=== PATIENT | female | born 1940 | race Caucasian/White ===

== ENCOUNTER → 2016-04-11 | Outpatient (CLI) | payer MEDICARE ==
--- NOTE | 2016-04-12 08:23 | MM ---
Reason for exam: screening (asymptomatic). Last mammogram was performed 1 year ago. History: Patient is postmenopausal. Benign cyst aspiration of the left breast, 1994. Physical Findings: A clinical breast exam by your physician is recommended on an annual basis and results should be correlated with mammographic findings. MG 3D Screening Mammo W/Cad Bilateral CC and MLO view(s) were taken. Prior study comparison: April 01, 2015, bilateral MG 3d screening mammo w/cad. March 26, 2014, bilateral MG screening mammo w CAD. The breast tissue is heterogeneously dense. This may lower the sensitivity of mammography. Finding: There are typically benign vascular, round calcifications in both breasts. There is no discrete abnormality. ASSESSMENT: Benign, BI-RAD 2 RECOMMENDATION: Routine screening mammogram of both breasts in 1 year.
== END | disposition home or self-care (01) ==
LOC: RADMAMWWP 10:41
PROVIDERS: ATTEND Internal Medicine
DX: Z12.31 Encounter for screening mammogram for malignant neoplasm of breast (principal)
CPT/HCPCS: 77063; G0202

== ENCOUNTER → 2017-05-12 | Outpatient (CLI) | payer MEDICARE ==
--- NOTE | 2017-05-15 10:37 | MM ---
Reason for exam: screening (asymptomatic). Last mammogram was performed 1 year and 1 month ago. History: Patient is postmenopausal. Benign cyst aspiration of the left breast, 1994. Physical Findings: A clinical breast exam by your physician is recommended on an annual basis and results should be correlated with mammographic findings. MG 3D Screening Mammo W/Cad Bilateral CC and MLO view(s) were taken. Prior study comparison: April 11, 2016, bilateral MG 3d screening mammo w/cad. April 01, 2015, bilateral MG 3d screening mammo w/cad. The breast tissue is heterogeneously dense. This may lower the sensitivity of mammography. No suspicious abnormality. No significant changes when compared with prior studies. ASSESSMENT: Negative, BI-RAD 1 RECOMMENDATION: Routine screening mammogram of both breasts in 1 year.
== END | disposition home or self-care (01) ==
LOC: RADMAMWWP 10:42
PROVIDERS: ATTEND Internal Medicine
DX: Z12.31 Encounter for screening mammogram for malignant neoplasm of breast (principal)
CPT/HCPCS: 77063; 77067

== ENCOUNTER → 2017-06-26 | Outpatient (CLI) | payer MEDICARE ==
--- NOTE | 2017-06-26 15:42 | US ---
EXAMINATION TYPE: US carotid duplex BILAT DATE OF EXAM: 06/26/2017 COMPARISON: NONE CLINICAL HISTORY: I65.23Occlusion and stenosis,. Stenosis EXAM MEASUREMENTS: RIGHT: Peak Systolic Velocity (PSV) cm/sec ----- Right CCA: 64.2 ----- Right ICA: 58.4 ----- Right ECA: 62.8 ICA/CCA ratio: 0.9 RIGHT: End Diastole cm/sec ----- Right CCA: 17.1 ----- Right ICA: 23.6 ----- Right ECA: 7.0 LEFT: Peak Systolic Velocity (PSV) cm/sec ----- Left CCA: 65.5 ----- Left ICA: 72.8 ----- Left ECA: 69.3 ICA/CCA ratio: 1.1 LEFT: End Diastole cm/sec ----- Left CCA: 22.6 ----- Left ICA: 30.0 ----- Left ECA: 8.6 VERTEBRALS (direction of flow): Right Vertebral: Antegrade Left Vertebral: Antegrade Rhythm: Arrhythmia No elevated velocities, no significant stenosis. IMPRESSION: 1. No sonographic evidence of hemodynamically significant stenosis within either arterial system. 2. Incidentally noted cardiac arrhythmia. Correlate with EKG.
--- NOTE | 2017-06-26 17:48 | ECHOF ---
Referral Reason:I65.23Occlusion and stenosis, MEASUREMENTS -------- HEIGHT: 160.0 cm WEIGHT: 61.2 kg BP: 133/83 RVIDd: 3.1 cm (< 3.3) IVSd: 1.0 cm (0.6 - 1.1) LVIDd: 4.3 cm (3.9 - 5.3) LVPWd: 1.0 cm (0.6 - 1.1) IVSs: 1.4 cm LVIDs: 2.6 cm LVPWs: 1.4 cm LAESV Index (A-L): 25.22 ml/m Ao Diam: 2.9 cm (2.0 - 3.7) AV Cusp: 1.9 cm (1.5 - 2.6) LA Diam: 3.4 cm (2.7 - 3.8) MV E Kade: 0.63 m/s MV DecT: 183 ms MV A Kade: 1.12 m/s MV E/A Ratio: 0.56 RAP: 5.00 mmHg RVSP: 30.16 mmHg FINDINGS -------- Atrial fibrillation. This was a technically adequate study. The left ventricular size is normal. Left ventricular wall thickness is normal. Overall left vent ricular systolic function is normal with, an EF between 55 - 60 %. The right ventricle is normal in size and function. Normal LA size by volume 22+/-6 ml/m2. The right atrium is normal in size. Aortic valve is trileaflet and is mildly thickened. There is no evidence of aortic regurgitation. There is no evidence of aortic stenosis. The mitral valve leaflets are mildly thickened. There is trace to mild mitral regurgitation. Trace tricuspid regurgitation present. Right ventricular systolic pressure is normal at < 35 mmHg. There is no evidence of pulmonary hypertension. Trace/mild (physiologic) pulmonic regurgitation. The aortic root size is normal. Normal inferior vena cava with normal inspiratory collapse consistent with estimated right atrial pre ssure of 5 mmHg. The pericardium is normal. There is no pericardial effusion. CONCLUSIONS -------- 1. Atrial fibrillation. 2. This was a technically adequate study. 3. The left ventricular size is normal. 4. Left ventricular wall thickness is normal. 5. Overall left ventricular systolic function is normal with, an EF between 55 - 60 %. 6. Normal LA size by volume 22+/-6 ml/m2. 7. Aortic valve is trileaflet and is mildly thickened. 8. The mitral valve leaflets are mildly thickened. 9. There is trace to mild mitral regurgitation. 10. Trace tricuspid regurgitation present. 11. Right ventricular systolic pressure is normal at < 35 mmHg. 12. There is no evidence of pulmonary hypertension. 13. Trace/mild (physiologic) pulmonic regurgitation. 14. The aortic root size is normal. 15. There is no pericardial effusion. COW BUYER: Francisco J Lind RDCS
== END | disposition home or self-care (01) ==
LOC: RADECHMAIN 14:41
PROVIDERS: ATTEND Internal Medicine
DX: I65.23 Occlusion and stenosis of bilateral carotid arteries (principal); I48.91 Unspecified atrial fibrillation; I08.0 Rheumatic disorders of both mitral and aortic valves
CPT/HCPCS: 93306; 93880

== ENCOUNTER → 2017-09-11 | Day surgery (SDC) | payer MEDICARE ==
[2017-08-31 16:02] VITALS: BMI 24.7
[~2017-09-11] MED LIST: ALPRAZolam 0.25 MG TAB PO PRN; ALPRAZolam 0.5 MG TAB PO PRN; ASPIRIN 325 MG TAB PO STA; ATORVASTATIN 80 MG TAB PO STA; HEPARIN SODIUM 1,000 UN/ML (10ML VL) IV ONE; HEPARIN SODIUM 1,000 UN/ML (10ML VL) ONE; IOPAMIDOL-370 125ML BTL INJ ONE; IV FLUID CONTINUATION 950 ML IV ONE; LIDOCAINE 1% INJ 10MG/ML (20 ML MDV) ONE; LIDOCAINE 1% INJ 10MG/ML (20 ML MDV) SQ ONE; LISINOPRIL-HCTZ 20-12.5 MG 1 EACH TAB PO SCH; LISINOPRIL-HCTZ 20-12.5 MG 1 EACH TAB PO STA; METOPROLOL TARTRATE 25 MG TAB PO SCH; METOPROLOL TARTRATE 25 MG TAB PO STA; NITROGLYCERIN SL TABS 0.4 MG TAB SUBLINGUAL PRN; NON-FORMULARY DRUG (Simvastatin 40 MG) PO SCH; RX INFO: IV CONTRAST WAS GIVEN 1 EACH MISC MISCELLANE PRN; SODIUM CHLORIDE 0.9% 1,000 ML IV SCH; SODIUM CHLORIDE 0.9% 1,000 ML in EMPTY BAG 1 BAG IV ONE; VERAPAMIL 2.5 MG/ML 2 ML AMP ONE; VERAPAMIL SYRINGE (5 MG/10 ML) INTRAARTER ONE; diphenhydrAMINE 50 MG/ML 1 ML VIAL IVP ONE; diphenhydrAMINE 50 MG/ML 1 ML VIAL ONE; fentaNYL (PF) 50 MCG/ML 2 ML AMP IV ONE; fentaNYL (PF) 50 MCG/ML 2 ML AMP ONE
[2017-09-11 07:10] VITALS: RESP 16; TEMP 98.3
--- NOTE | 2017-09-11 08:21 | CC ---
CARDIAC CATHETERIZATION REPORT Mrs. Shaw is a 77-year-old female with history of hypertension, hyperlipidemia, paroxysmal atrial fibrillation, who recently underwent a myocardial perfusion imaging that revealed apical reversible defect. In view of that, recommendation was made regarding cardiac catheterization. The procedure as well as the risks and the complications were discussed with the patient who is in full understanding and agreement. PROCEDURE: Patient was brought to the warehouse laborer in a fasting semi-sedated state after receiving fentanyl and Benadryl and achieving moderate conscious sedated state. Using Xylocaine anesthesia in the Seldinger technique, a 6-Nauruan sheath was introduced in the right radial artery. Selective right and left coronary angiography performed using 5-Nauruan 3.5 bend right and left Pankaj catheter. Multiple views of the coronary artery including hemiaxial views were obtained. Following that, a 5-Nauruan tight pigtail catheter was introduced in the left ventricle and a 30- degree CAMERON view of the left ventricle was obtained. Following that, catheter and sheaths were removed. Hemostasis was obtained with deployment of a TR band. There was no immediate complication. Patient is returned to her room in stable condition. Of note, the patient received 3500 units of intravenous heparin as well as intra-arterial verapamil. FINDINGS: LEFT MAIN: This is a short size vessel bifurcating into left circumflex, left anterior descending artery. Left main coronary artery has no evidence of high-grade stenosis. LEFT ANTERIOR DESCENDING ARTERY: This is a large-sized vessel tapers down distal third, giving rise to one diagonal branch. The left anterior descending artery as well as branches have no evidence of obstructive coronary artery disease. LEFT CIRCUMFLEX: This is a nondominant vessel, large in caliber, giving rise to 2 obtuse marginal branches. The second one is large in caliber. The left circumflex as well as branches have no evidence of obstructive coronary artery disease. RIGHT CORONARY ARTERY: This is a large dominant vessel bifurcating in PDA and posterolateral segment branches. The right coronary artery PDA reaches toward the inferior apical wall. The right coronary artery and its branches have no evidence of obstructive coronary artery disease. LEFT VENTRICULOGRAM: Left ventriculogram is performed in 30-degree CAMERON view and revealed normal left ventricular size and systolic function. There was arrhythmia induced mitral regurgitation. HEMODYNAMICS: There was no gradient across the aortic valve. The left ventricular end- diastolic pressure was 12 to 14 mmHg. CONCLUSION: 1. Normal coronary arteries. 2. Normal left ventricular size and systolic function. RECOMMENDATION: In view of finding anatomy, I recommend to continue medical therapy with aggressive coronary risk modifications that have been initiated. Those findings and recommendations were discussed with the patient and her family and they are in full understanding and agreement. MMODL / IJN: [id number] /
--- NOTE | 2017-09-11 08:24 | LTR ---
September 11, 2017 Re: Caty Shaw Dear Dr. Spivey: I had the opportunity to perform cardiac catheterization on Mrs. Shaw at [facility] on the 11 of September and a full copy of the procedure note will be forwarded to you. In brief, she was found to have no evidence of high-grade stenosis with a normal left ventricular size and systolic function. Based on those findings, I recommend to continue medical therapy with aggressive coronary risk modification that has been initiated. Thank you again for allowing me the opportunity to participate in her care. Please feel free to call for any questions. Sincerely yours, MD MATT Noel / SOUMYAN: [id number] /
[2017-09-11 12:46] VITALS: BP 106/62; PULSE 62
== END | disposition home or self-care (01) ==
LOC: CATHCVL 06:35
PROVIDERS: ATTEND Internal Medicine Interventional Cardiology
DX: R94.39 Abnormal result of other cardiovascular function study (principal); I48.0 Paroxysmal atrial fibrillation; I10 Essential (primary) hypertension; E78.2 Mixed hyperlipidemia; G47.33 Obstructive sleep apnea (adult) (pediatric); Z79.01 Long term (current) use of anticoagulants; Z79.899 Other long term (current) drug therapy; Z88.2 Allergy status to sulfonamides
CPT/HCPCS: 93458; C1894; C1769; J1200; J2001; J3010; J1644; Q9967

== ENCOUNTER → 2017-09-19 | Outpatient (CLI) | payer MEDICARE ==
--- NOTE | 2017-09-19 20:17 | CONS ---
CONSULTATION This 77-year-old female patient was referred to me for evaluation and treatment of obstructive sleep apnea. She was noted to snore. No witnessed apneas. She reports her sleep quality to be good and she averages around 8-9 hours of sleep per night. She denies waking up for issues like nocturia or choking or gasping for air. No restlessness in lower extremities. No grinding of the teeth. No anxiety or panic attacks. She has history of chronic atrial fibrillation, currently in sinus rhythm on treatment with the combination of flecainide and Eliquis. No coronary artery disease. No heart attack. No congestive heart failure. No history of CVA. Her weight has been stable for many years. She sleeps on her side. She does not take any naps during the day. She has no vivid dreams. She drinks no alcoholic beverages and she drinks 1 cup of coffee in the morning. No recent weight gain. She sleeps in a room with a partner. She does not have any sleep paralysis, hallucinations or cataplexy at this point in time. PAST MEDICAL HISTORY: Paroxysmal atrial fibrillation, currently in sinus, hyperlipidemia and hypertension. PAST SURGICAL HISTORY: Includes cardiac catheterization. DRUG ALLERGIES: To SULFA. OUTPATIENT MEDICATION: Includes: 1. Zocor 40 daily. 2. Lisinopril/hydrochlorothiazide 20/12.5, 1 tablet a day. 3. Metoprolol 25 mg twice daily. 4. Eliquis 5 mg p.o. twice a day and. 5. Flecainide 50 mg twice a day. SOCIAL HISTORY: Nonsmoker. No history of alcohol. No history of IV drugs. REVIEW OF SYSTEMS: A 12-point review of system was done. Positive findings are mentioned above in history of present illness. BP is 127/58, pulse 66, respirations 16, temperature 97.9, saturation 95% on room air. Weight is 144, height is 64, BMI 27.7. Vancouver Score is at 1. GENERAL APPEARANCE: Calm, comfortable. Head is atraumatic, normocephalic. Neck is short, supple. Crowding of posterior pharynx is present. Mallampati class III-IV. LUNGS: Clear to auscultation. HEART: Sounds are regular rate and rhythm. Normal S1, S2. No S3, S4. No murmurs. ABDOMEN: Soft, nontender. No organomegaly. EXTREMITIES: No edema and there is no cyanosis or clubbing at this point. IMPRESSION: 1. Snoring with low suspicion for obstructive sleep apnea in general. 2. Paroxysmal atrial fibrillation, currently in sinus. 3. Hyperlipidemia. 4. Hypertension. PLAN: 1. Home sleep study for apnea screening. 2. Will make further recommendations based on results. Overall, sleep hygiene measures are appropriate. She is well-treated for cardiovascular disease. Will continue to follow and make further recommendations should there be any positivity in her home sleep study testing. MMODL / IJN: [id number] /
== END | disposition home or self-care (01) ==
LOC: SLEEP 14:58
PROVIDERS: ATTEND Internal Medicine Critical Care Medicine
DX: R06.83 Snoring (principal); I48.0 Paroxysmal atrial fibrillation; E78.5 Hyperlipidemia, unspecified; I10 Essential (primary) hypertension; Z95.5 Presence of coronary angioplasty implant and graft; Z88.2 Allergy status to sulfonamides; Z79.02 Long term (current) use of antithrombotics/antiplatelets; Z79.899 Other long term (current) drug therapy
CPT/HCPCS: 99211

== ENCOUNTER → 2018-06-14 | Outpatient (CLI) | payer MEDICARE ==
--- NOTE | 2018-06-14 10:42 | BD ---
EXAMINATION TYPE: Axial Bone Density DATE OF EXAM: 06/14/2018 COMPARISON: 03.26.2014 CLINICAL HISTORY: 78 YR OLD FEMALE....ICD-10 CODE: M81.0 AGE RELATED OSTEOPOROSIS Height: 63.2 Weight: 144 FRAX RISK QUESTIONS: NOTHING TO NOTE HERE RISK FACTORS HISTORY OF: Active: YES Postmenopausal woman: YES AT AGE 54 Lost more than 2 inches in height since high school: YES MEDICATIONS: Additional Medications: CALCIUM AND VIT D, BP MEDS, STATIN FOR CHOLESTEROL Additional History: HYPERTENSION, CHOLESTEROL EXAM MEASUREMENTS: Bone mineral densitometry was performed using the ParQnow System. Bone mineral density as measured about the Lumbar spine is: ----- L1-L4(G/cm2): 1.139 T Score Values are as follows: ----- L1: -1.4 ----- L2: -1.2 ----- L3: 0.5 ----- L4: 0.4 ----- L1-L4: -0.3 Bone mineral density has: Increased 6.1% since study of: 03.26.2014 Bone mineral density about the R hip (g/cm2): 1.003 Bone mineral density about the L hip (g/cm2): 1.032 T Score values are as follows: -----R Neck: -1.1 -----L Neck: -0.8 -----R Total: 0.0 -----L Total: 0.2 Bone mineral density has: Increased 2.0% since study of: 03.26.2014 FRAX%s: THERE IS A 11.7% CHANCE FOR A MAJOR OSTEOPOROTIC FX AND A 2.3% FOR HIP....PROBABILITY OF FX IN 10 YRS TIME IMPRESSION: Normal (Values between +1 and -1 indicate normal bone mass). Consider repeating this study in 5 year s or sooner if there is some new clinical indication. NOTE: T-SCORE=SD OF THE YOUNG ADULT MEAN.
--- NOTE | 2018-06-15 11:44 | MM ---
Reason for exam: screening (asymptomatic). Last mammogram was performed 1 year and 1 month ago. History: Patient is postmenopausal. Benign cyst aspiration of the left breast, 1994. Physical Findings: A clinical breast exam by your physician is recommended on an annual basis and results should be correlated with mammographic findings. MG 3D Screening Mammo W/Cad Bilateral CC and MLO view(s) were taken. Prior study comparison: May 12, 2017, bilateral MG 3d screening mammo w/cad. April 11, 2016, bilateral MG 3d screening mammo w/cad. The breast tissue is heterogeneously dense. This may lower the sensitivity of mammography. Benign appearing bilateral calcifications. No suspicious abnormality. ASSESSMENT: Benign, BI-RAD 2 RECOMMENDATION: Routine screening mammogram of both breasts in 1 year.
== END ==
LOC: RADMAMWWP 09:48
PROVIDERS: ATTEND Internal Medicine
DX: Z12.31 Encounter for screening mammogram for malignant neoplasm of breast (principal); M81.0 Age-related osteoporosis without current pathological fracture
CPT/HCPCS: 77063; 77067; 77080

== ENCOUNTER → 2019-02-19 | Outpatient (CLI) | payer MEDICARE ==
--- NOTE | 2019-02-19 18:01 | PN ---
PROGRESS NOTE PROGRESS NOTE FOR SLEEP APNEA: This is a 79-year-old female patient coming in for an annual check regarding obstructive sleep apnea. The patient has severe disease with an AHI of 39, and currently she is utilizing a CPAP pressure of 7 cm of water. She is still doing very well. She has lost around 5 pounds since her last evaluation. She is using a DreamWear small-sized [id number] mask. Based on the compliance data, the patient has been averaging around 6-1/2 hours of CPAP use per night, and her CPAP use for more than 4 hours is 26/30. Leak is 0 L/minute. AHI is down to 0.1. Treatment is successful, and the patient has no major hypersomnia or sleepiness during the day. No other new-onset acute medical problems or comorbidities. She has atrial fibrillation. Currently her rhythm is sinus. No angina. No palpitations. No shortness of breath. No congestion or heart failure. No history of any CVA. REVIEW OF SYSTEMS: Fourteen-point review of systems was done. Positive findings were all mentioned above in the history of present illness. Patient overall is doing well. Very compliant with CPAP therapy. No headache. No altered mentation. No weight gain. No other major medical problems or comorbidities. PHYSICAL EXAMINATION: BP is 112/58, pulse 70, respirations 16, temperature 97.4, saturation 96% on room air. Weight is 140. Height is 5 feet 4 inches. Berlin score is 2. BMI is 24. GENERAL APPEARANCE: Calm, comfortable. HEAD: Atraumatic, normocephalic. NECK: Supple. No JVD. No goiter or neck masses. Mallampati class IV. LUNGS: Clear to auscultation. HEART: Heart sounds are regular rate and rhythm. Normal S1, S2. No S3, S4. No murmurs. ABDOMEN: Soft, nontender. No organomegaly. EXTREMITIES: No edema. No cyanosis or clubbing. NEUROLOGIC: Alert and oriented x3. No focal neurological deficits. PSYCHIATRIC: Negative for anxiety or depression. IMPRESSION: 1. Symptomatic obstructive sleep apnea, severe, with an apnea/hypopnea index of 39, undergoing successful CPAP therapy. 2. Paroxysmal atrial fibrillation. Rhythm remains sinus. 3. Hypertension. 4. Hyperlipidemia. PLAN: 1. Continue CPAP at the same level of pressure, which is 7 cm of water. 2. Adequate weight loss. 3. Use the DreamWear [id number] small-sized mask. I also introduced an AirFit N30i small-sized mask, which she liked. 4. Overall condition is stable. Treatment is successful. See me back in a year's time in followup, earlier if needed. MMMAYL / IJN: [id number] /
== END | disposition home or self-care (01) ==
LOC: SLEEP 14:07
PROVIDERS: ATTEND Internal Medicine Critical Care Medicine
DX: G47.33 Obstructive sleep apnea (adult) (pediatric) (principal); I10 Essential (primary) hypertension; E78.5 Hyperlipidemia, unspecified; I48.0 Paroxysmal atrial fibrillation; Z99.89 Dependence on other enabling machines and devices

== ENCOUNTER → 2019-11-20 | Outpatient (CLI) | payer MEDICARE ==
--- NOTE | 2019-11-22 09:49 | MM ---
Reason for exam: screening (asymptomatic). Last mammogram was performed 1 year and 5 months ago. History: Patient is postmenopausal. Benign cyst aspiration of the left breast, 1994. Physical Findings: A clinical breast exam by your physician is recommended on an annual basis and results should be correlated with mammographic findings. MG 3D Screening Mammo W/Cad Bilateral CC and MLO view(s) were taken. Prior study comparison: June 14, 2018, bilateral MG 3d screening mammo w/cad. May 12, 2017, bilateral MG 3d screening mammo w/cad. The breast tissue is heterogeneously dense. This may lower the sensitivity of mammography. No significant changes when compared with prior studies. ASSESSMENT: Benign, BI-RAD 2 RECOMMENDATION: Routine screening mammogram of both breasts in 1 year.
== END | disposition home or self-care (01) ==
LOC: RADMAMWWP 12:52
PROVIDERS: ATTEND Internal Medicine
DX: Z12.31 Encounter for screening mammogram for malignant neoplasm of breast (principal)
CPT/HCPCS: 77063; 77067

== ENCOUNTER → 2019-12-24 | Outpatient (CLI) | payer MEDICARE ==
--- NOTE | 2019-12-24 15:04 | P.PN ---
Subjective Progress Note Date: 12/24/19 78-year-old female patient coming in for an annual checkup regarding up 6 obstructive sleep apnea. The patient is very well-known to me. She is known to have severe FRIDA with an AHI of 39 and continues to be treated successfully with CPAP therapy and she still has a pressure of 9 cm of water. On today's evaluation, the patient has no specific complaints. I checked the compliance data from her CPAP machine and the numbers are still looking great. The patient is wearing her CPAP every night without any major difficulties. A CPAP compliancy is 100%. She is averaging more than 4 hours 70% of the time. Her average CPAP use around 4.2 hours per night and the leak is in the order of 1 L per minute and it AHI is down to 0.1 while on treatment. The patient is using and airfit N30 i small size mask. I noted that her blood pressure is elevated and I asked her to contact her primary care physician that regard. The blood pressure as recorded byour machine in both arms is in order 170/76 and as such systolic blood pressure is elevated. No morning headaches. No hypersomnia and sleepiness. No restlessness in lower extremities. No nighttime chest pain or shortness of breath. No aerophagia. No gastric distention. She is waking up refreshed and alert during the day and she has no specific complaints. 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 Objective - Exam bP is 173/76, pulse is 58, respirations 16, temperature is 90.8, height is 53, weight is 136, BMI 23.7. Her Felton score is 1. The patient appeared well nourished and normally developed. Vital signs as documented. Head exam is unremarkable. No scleral icterus or corneal arcus noted. Neck is without jugular venous distension, thyromegaly, or carotid bruits. Carotid upstrokes are brisk bilaterally. Lungs are clear to auscultation and percussion. Cardiac exam reveals the PMI to be normally sized and situated. Rhythm is regular. First and second heart sounds normal. No murmurs, rubs or gallops. Abdominal exam reveals normal bowel sounds, no masses, no organomegaly and no aortic enlargement. Extremities are nonedematous and both femoral and pedal pulses are normal.Examination of the skin revealed no evidence of significant rashes, suspicious appearing nevi or other concerning lesions.Neurologically, the patient is awake and alert and the patient does not have any focal neurological deficit. Cranial nerves are essentially intact. Assessment and Plan Plan: 1 obstructive sleep apnea, severe at baseline with an AHI of 39. The patient continues to be successfully treated with CPAP at a pressure of 7 cm of water. Her treatment is successful. She is functional. Compliance data shows excellent use. She is alert and awake during the day. Her Felton score is down to 1. She has no complaints. 2 hypertension with elevated blood pressure. She is asymptomatic and her BP is elevated and the patient needs to follow up with her primary care physician. 3 paroxysmal atrial fibrillation and the cardiac rhythm remains sinus. 4 hyperlipidemia Plan Continue CPAP therapy same level of pressure I offered the patient AIrfit N30 i Small size nosepiece Her compliance data was checked Clinical response is great Implement good sleep hygiene measures Comorbidities are all inactive in stable see back in a years time, earlier if needed.
== END | disposition home or self-care (01) ==
LOC: SLEEP 14:09
PROVIDERS: ATTEND Internal Medicine Critical Care Medicine
DX: G47.33 Obstructive sleep apnea (adult) (pediatric) (principal); I10 Essential (primary) hypertension; I48.0 Paroxysmal atrial fibrillation; Z99.89 Dependence on other enabling machines and devices; E78.5 Hyperlipidemia, unspecified

== ENCOUNTER → 2020-06-18 | Outpatient (CLI) | payer MEDICARE ==
--- NOTE | 2020-06-19 15:16 | US ---
EXAMINATION TYPE: US abd limited kidneys/bladder DATE OF EXAM: 06/18/2020 COMPARISON: None CLINICAL HISTORY: 80-year-old female N18.1 chronic kidney disease. TECHNIQUE: Multiple sonographic images of the kidneys and bladder are obtained. FINDINGS: EXAM MEASUREMENTS: Liver Length: 12.1 cm Gallbladder Wall: 0.2 cm CBD: 0.3 cm Right Kidney: 8.9 x 5.2x 3.7 cm Left Kidney: 9.1 x 4.8 x 4.2 cm Pancreas: No gross abnormality.. Liver: Limited detailed assessment due to patient body habitus. Small let lobe peripheral cyst seen = 0.9 x 0.7 x 0.9cm Gallbladder: wnl CBD: wnl Right Kidney: No hydronephrosis. Slightly small in size. Left Kidney: No hydronephrosis. Slightly small in size. Bladder: wnl Bilateral Jets Seen very small right jet seen compared to normal left jet seen Post Void Volume: Patient is unable to void even after attempting to void. Bladder volume of 100 mL . IMPRESSION: 1. Slightly small size of the kidneys could reflect underlying chronic medical renal disease. No hydr onephrosis. 2. Bladder volume of 100 mL. Patient is unable to void further. Correlate to exclude urinary retentio n.
== END | disposition home or self-care (01) ==
LOC: RADUSWWP 16:06
PROVIDERS: ATTEND Internal Medicine
DX: N18.1 Chronic kidney disease, stage 1 (principal)
CPT/HCPCS: 76705; 76770

== ENCOUNTER → 2020-12-29 | Outpatient (CLI) | payer MEDICARE ==
--- NOTE | 2020-12-29 19:35 | PN ---
PROGRESS NOTE This is an 80-year-old female patient who coming in for an annual check regarding obstructive sleep apnea. The patient is well known to me and she has severe FRIDA with an AHI of 39. Currently she is on CPAP pressure of 9 cm of water. No major difficulties with her CPAP treatment. She is using an AirFit N20 small-sized nose mask. No major hypersomnia or sleepiness during the day and she seems to be well treated. She has an average of 4.3 hours of CPAP use per night. Her usage of the machine for more than 4 hours is approximately 70%. She has used her machine every night. Her leak is on the order of 6 L/minute. Her AHI is down to 0.4. No weight gain. No other new-onset comorbidities. Her blood pressure seems to be a little bit elevated, yet she tells me that in general her blood pressure has been under good control. No tiredness and sleepiness during the day. Medication remains unchanged for now. MEDICATIONS: Medication list includes: 1. Eliquis 5 mg p.o. twice a day. 2. Flecainide 100 mg p.o. daily. 3. Lisinopril/hydrochlorothiazide 20/25 one tablet a day. 4. Metoprolol 25 mg p.o. twice a day. 5. Zocor 40 mg p.o. daily. REVIEW OF SYSTEMS: Fourteen-point review of systems was done. The positive findings are all mentioned above in history of present illness. PHYSICAL EXAMINATION: BP is 175/96, pulse 64, respirations 12, temperature 97.3, saturation 96% on room air. BMI 25.4. [place] score is 1. GENERAL APPEARANCE: Calm and comfortable. No acute distress. HEAD: Atraumatic, normocephalic. NECK: Supple. No JVD. No goiter or neck masses. LUNGS: Clear to auscultation. Heart sounds are regular rate and rhythm. Normal S1, S2. No S3, S4. No murmurs. ABDOMEN: Soft, nontender. No organomegaly. EXTREMITIES: No edema. No cyanosis or clubbing. NEUROLOGIC: Awake and alert. There is no focal neurological deficit. IMPRESSION: 1. Obstructive sleep apnea, severe. AHI of 39. Currently on CPAP pressure of 7 cm of water. Treatment remains successful. 2. Hypertension. 3. Paroxysmal atrial fibrillation. Rate is controlled. The patient is currently in normal sinus rhythm on Eliquis and metoprolol. 4. Hyperlipidemia. PLAN: 1. CPAP machine was checked and the machine was functional. 2. Compliance data was checked and the numbers are looking great. 3. Continue the AirFit N20 small-sized nose mask. 4. Keep the pressure setting at 7 cm of water. 5. Treatment is successful. Encourage increasing the number of hours of sleep with the CPAP. 6. Cardiovascular status is stable. The patient will see me back in a year's time in followup. Refills were given. MMODL / IJN: [id number] /
== END ==
LOC: SLEEP 14:47
PROVIDERS: ATTEND Internal Medicine Critical Care Medicine
DX: G47.33 Obstructive sleep apnea (adult) (pediatric) (principal); I10 Essential (primary) hypertension; E78.5 Hyperlipidemia, unspecified; I48.0 Paroxysmal atrial fibrillation; Z99.89 Dependence on other enabling machines and devices; Z79.899 Other long term (current) drug therapy; Z88.2 Allergy status to sulfonamides

== ENCOUNTER → 2021-03-22 | Outpatient (CLI) | payer MEDICARE ==
--- NOTE | 2021-03-22 14:09 | BD ---
EXAMINATION TYPE: Axial Bone Density DATE OF EXAM: 03/22/2021 COMPARISON: 06.14.2018 CLINICAL HISTORY: 81 YR OLD FEMALE.......ICD-10 CODE: M81.0 OSTEOPOROSIS Height: 62.8 Weight: 145 FRAX RISK QUESTIONS: History of Fracture in Adulthood: YES, MINOR BONE RISK FACTORS HISTORY OF: HX OF BROKEN NOSE, AT 71 YRS OLD Postmenopausal woman: YES, AT AGE 54 Frequent falls: FELL AT AGE 71, BROKE HER NOSE Hyperparathyroidism: NO Adrenal Insufficiency: NO MEDICATIONS: Osteoporosis Medications: FOSAMAX IN THE PAST NOT NOW Additional Medications: BP MEDS, STATIN FOR CHOLESTEROL, CALCIUM AND VIT D Additional History: HYPERTENSION, CHOLESTEROL, EXAM MEASUREMENTS: Bone mineral densitometry was performed using the [employer] System. Bone mineral density as measured about the Lumbar spine is: ----- L1-L4(G/cm2): 1.179 T Score Values are as follows: ----- L1: -1.4 ----- L2: -0.4 ----- L3: 1.1 ----- L4: 0.3 ----- L1-L4: 0.0 Bone mineral density has: Increased 4.6% since study of: 06.14.2018 Bone mineral density about the R hip (g/cm2): 1.001 Bone mineral density about the L hip (g/cm2): 1.029 T Score values are as follows: -----R Neck: -0.9 -----L Neck: -0.9 -----R Total: -0.1 -----L Total: 0.2 Bone mineral density has: Decreased -0.2% since study of: 06.14.2018 FRAX%s: THERE IS A 16.9% CHANCE FOR A MAJOR OSTEOPOROTIC FX AND A 3.0% FOR HIPS......PROBABILITY FOR FX IN 10 YRS TIME IMPRESSION: Normal (Values between +1 and -1 indicate normal bone mass). Consider repeating this study in 5 year s or sooner if there is some new clinical indication. NOTE: T-SCORE=SD OF THE YOUNG ADULT MEAN.
--- NOTE | 2021-03-23 08:08 | MM ---
Reason for exam: screening (asymptomatic). Last mammogram was performed 1 year and 4 months ago. History: Patient is postmenopausal. Benign cyst aspiration of the left breast, 1994. Physical Findings: A clinical breast exam by your physician is recommended on an annual basis and results should be correlated with mammographic findings. MG 3D Screening Mammo W/Cad Bilateral CC and MLO view(s) were taken. Prior study comparison: November 20, 2019, bilateral MG 3d screening mammo w/cad. June 14, 2018, bilateral MG 3d screening mammo w/cad. The breast tissue is heterogeneously dense. This may lower the sensitivity of mammography. There are benign appearing round and vascular calcifications. There is no discrete abnormality. ASSESSMENT: Benign, BI-RAD 2 RECOMMENDATION: Routine screening mammogram of both breasts in 1 year.
== END | disposition home or self-care (01) ==
LOC: RADBDWWP 12:20
PROVIDERS: ATTEND Internal Medicine
DX: Z12.31 Encounter for screening mammogram for malignant neoplasm of breast (principal); Z78.0 Asymptomatic menopausal state
CPT/HCPCS: 77063; 77067; 77080

== ENCOUNTER → 2022-03-15 | Outpatient (CLI) | payer MEDICARE ==
--- NOTE | 2022-03-15 15:00 | P.PN ---
Progress Note - Text Progress Note Date: 03/15/22 This is a 82-year-old female patient with known history of obstructive sleep apnea was coming in for a regular check. The patient is accompanied by her and she is coming in for regular check. She has a functional machine which is set at a pressure of 9 cm of water. He is using the P30I nasal pillows. She is doing extremely well. No major hypersomnia or sleepiness during the day. Based on a 30 day compliancy, the patient has been averaging around 3.8 hours of CPAP use per night and her CPAP use this for more than 4 hours is 12 out of 30. Had AHI is down to 0.5 and the leak is in order of 1 L/m. No significant weight gain over the past one year. She is waking up refreshed and alert during the day. No angina. No palpitations. No chest pain. No shortness of breath. No other significant events over the past 12 months. The patient has no specific complaints for now. She is known to have paroxysmal atrial fibrillation. She remains on anticoagulant with Eliquis. BP is 150/74 with a pulse of 65 and the respiration 16 with a temperature 97.5 and oxygen saturations 98%. Weight is 146 and Osborn score is at 1. The patient appeared well nourished and normally developed. Vital signs as documented. Head exam is unremarkable. No scleral icterus or corneal arcus noted. Neck is without jugular venous distension, thyromegaly, or carotid bruits. Carotid upstrokes are brisk bilaterally. Lungs are clear to auscultation and percussion. Cardiac exam reveals the PMI to be normally sized and situated. Rhythm is regular. First and second heart sounds normal. No murmurs, rubs or gallops. Abdominal exam reveals normal bowel sounds, no masses, no organomegaly and no aortic enlargement. Extremities are nonedematous and both femoral and pedal pulses are normal. Examination of the skin revealed no evidence of significant rashes, suspicious appearing nevi or other concerning lesions.Neurologically, the patient is awake and alert and the patient does not have any focal neurological deficit. Cranial nerves are essentially intact. impression Obstructive sleep apnea with an AHI of 39, receiving CPAP at a pressure of 9 cm of water Chronic hypersomnia, improved and the patient's Osborn score is 1 paroxysmal atrial fibrillation, current rhythm is sinus Hyperlipidemia Hypertension Plan Increase the number of hours of CPAP use per night, current averages at 3.8 hours per night Maintain same CPAP pressures Keep same settings and mask interface We'll continue to follow
== END ==
LOC: SLEEP 14:00
PROVIDERS: ATTEND Internal Medicine Critical Care Medicine
DX: G47.33 Obstructive sleep apnea (adult) (pediatric) (principal); Z99.89 Dependence on other enabling machines and devices; I48.0 Paroxysmal atrial fibrillation; E78.5 Hyperlipidemia, unspecified; I10 Essential (primary) hypertension; Z88.2 Allergy status to sulfonamides
CPT/HCPCS: 99212

== ENCOUNTER 2022-10-18 06:23 | Day surgery (SDC) | payer MEDICARE ==
[2022-10-14 08:41] VITALS: BMI 23.9
[2022-10-18] MEDS ORDERED: LIDOCAINE 1% (10MG/ML) FOR IV START INTRADERMA PRN (06:41)
[2022-10-18] MEDS ORDERED: LACTATED RINGERS 1,000 ML IV SCH (06:41)
[2022-10-18 06:51] VITALS: RESP 16; TEMP 98.2
[2022-10-18] MEDS ORDERED: LIDOCAINE 2% INJ 20 MG/ML (2 ML VIAL) ONE (07:25)
[2022-10-18] MEDS ORDERED: PROPOFOL 10 MG/ML 20 ML VIAL IV ONE (07:25)
--- NOTE | 2022-10-18 07:52 | P.PCN ---
Date of Procedure: 10/18/22 Procedure(s) Performed: Brief history: Patient is a pleasant 80-year-old white female scheduled for an elective upper endoscopy as well as colonoscopy as a part of evaluation of iron deficiency anemia. She denies any GI symptoms. No abdominal pain, nausea vomiting or rectal bleeding. Procedure performed: Esophagogastroduodenoscopy with biopsy Colonoscopy Preoperative diagnosis: Iron deficiency anemia Anesthesia: MAC Procedure: After informed consent was obtained from the patient was brought into the endoscopy unit and IV sedation was administered by anesthesia under continuous monitoring. Initially upper endoscopy was done. The Olympus GF 160 video endoscope was inserted inserted into the mouth and esophagus intubated without any difficulty and was gradually advanced into the stomach and duodenum and carefully examined. The bulb and second part of the duodenum appeared normal. Biopsies were done from the duodenum to rule out celiac disease. The scope was then withdrawn into the stomach adequately insufflated with air and upon careful examination the antrum had mild gastritis and biopsies were done from this area. On retroflexion there was a gastric polyp noted in the fundus of the stomach that was also biopsied. Mucosa of the body, cardia and fundus appeared normal. The scope was then withdrawn into the esophagus. The GE junction was located at 40 cm to the incisors. It appeared regular with no erythema erosions or ulcerations. Rest of the esophagus appeared normal. Patient tolerated the procedure well. At this time the patient continued to remain sedation. Initial digital rectal examination was normal. Olympus CF 160 video colonoscope was then inserted into the rectum and gradually advanced to the cecum without any difficulty. Careful examination was performed as the scope was gradually being withdrawn. The prep was excellent. The cecum, ascending colon, transverse colon, descending colon, sigmoid colon and rectum appeared normal. Scattered sigmoid diverticulosis Retroflexion was performed in the rectum and grade 2 internal hemorrhoids with m ild rectal prolapse was noted. Patient tolerated the procedure well. Impression: 1. Upper endoscopy revealed mild antral gastritis and small gastric polyps in the fundus of the stomach status post biopsy 2. Colonoscopy revealed scattered sigmoid diverticulosis and grade 2 internal hemorrhoids with mild rectal prolapse Recommendations: Findings of this examination were discussed with the patient as well as her family. She was advised to follow with the biopsy results. continue with iron supplements. Resume Xarelto today.
[2022-10-18] MEDS ORDERED: IV FLUID CONTINUATION 400 ML IV ONE (07:55)
[2022-10-18 08:44] VITALS: BP 109/71; PULSE 68
== END 2022-10-18 09:17 | disposition home or self-care (01) ==
LOC: ORWHC2ENDO 06:23
PROVIDERS: ATTEND Internal Medicine Gastroenterology
DX: K29.50 Unspecified chronic gastritis without bleeding (principal); G47.33 Obstructive sleep apnea (adult) (pediatric); D50.9 Iron deficiency anemia, unspecified; I48.91 Unspecified atrial fibrillation; I10 Essential (primary) hypertension; E78.5 Hyperlipidemia, unspecified; K31.7 Polyp of stomach and duodenum; Z88.6 Allergy status to analgesic agent; Z88.2 Allergy status to sulfonamides; Z79.899 Other long term (current) drug therapy
CPT/HCPCS: 88305; 88342; 88341; 45378; 43239; J2704; J2001

== ENCOUNTER → 2022-11-01 | Outpatient (CLI) | payer MEDICARE ==
[2022-11-01 16:04] LABS: Basophils # (A) 0.05 X 10*3/uL (0.00-0.10); Basophils % (A) 0.9 %; Eosinophils # (A) 0.16 X 10*3/uL (0.04-0.35); HCT 32.2 % (37.2-46.3); HGB 9.8 d/dL (12.0-15.0); Lymphocytes # (A) 1.79 X 10*3/uL (0.90-5.00); MCH 25.7 pg (27.0-32.0); MCHC 30.4 d/dL (32.0-37.0); MCV 84.3 FL (80.0-97.0); Mean Platelet Volume 10.5 FL (9.5-12.2); Monocytes # (A) 0.59 X 10*3/uL (0.20-1.00); Monocytes % (A) 10.9 %; NRBC Per 100 WBC 0 X 10*3/uL (0.00-0.01); Neutrophils # (A) 2.82 X 10*3/uL (1.80-7.70); Platelet Count 243 X 10*3/uL (140-440); RBC 3.82 X 10*6/uL (4.10-5.20); RDW 15.9 % (11.5-14.5); WBC 5.42 X 10*3/uL (4.50-10.00)
== END | disposition home or self-care (01) ==
LOC: LABWHC1 11:41
PROVIDERS: ATTEND Nurse Practitioner Family
DX: D50.9 Iron deficiency anemia, unspecified (principal)
CPT/HCPCS: 36415; 85025

== ENCOUNTER → 2023-01-23 | Outpatient (CLI) | payer MEDICARE ==
--- NOTE | 2023-01-23 13:44 | XR ---
EXAMINATION TYPE: XR knee complete RT DATE OF EXAM: 01/23/2023 CLINICAL HISTORY: pain TECHNIQUE: Three views of the right knee are obtained. COMPARISON: None. FINDINGS: There is no acute fracture/dislocation. The tri-compartment joint spaces appear within no rmal limits. The overlying soft tissue appears unremarkable. IMPRESSION: There is no acute fracture or dislocation.ICD 10 NO FRACTURE, INITIAL EVALUATION
[2023-01-24 02:50] LABS: Basophils # (A) 0.05 X 10*3/uL (0.00-0.10); Basophils % (A) 0.8 %; Eosinophils # (A) 0.18 X 10*3/uL (0.04-0.35); Eosinophils % (A) 2.7 %; HCT 37.9 % (37.2-46.3); HGB 11.8 g/dL (12.0-15.0); Lymphocytes # (A) 2.11 X 10*3/uL (0.90-5.00); Lymphocytes % (A) 31.7 %; MCH 27.9 pg (27.0-32.0); MCHC 31.1 g/dL (32.0-37.0); MCV 89.6 FL (80.0-97.0); Mean Platelet Volume 10.8 FL (9.5-12.2); Monocytes # (A) 0.77 X 10*3/uL (0.20-1.00); Monocytes % (A) 11.6 %; NRBC Per 100 WBC 0 X 10*3/uL (0.00-0.01); Neutrophils # (A) 3.53 X 10*3/uL (1.80-7.70); Platelet Count 254 X 10*3/uL (140-440); RBC 4.23 X 10*6/uL (4.10-5.20); RDW 15.9 % (11.5-14.5); WBC 6.65 X 10*3/uL (4.50-10.00)
[2023-01-24 03:09] LABS: % Iron Saturation 34.11 (12.00-45.00); Ferritin 27.6 ng/mL (10.0-291.0)
== END | disposition home or self-care (01) ==
LOC: LABWHC1 12:58
PROVIDERS: ATTEND Internal Medicine
DX: M25.561 Pain in right knee (principal); D50.9 Iron deficiency anemia, unspecified
CPT/HCPCS: 36415; 82728; 83540; 83550; 85025